=== PATIENT | female | born 1980 | race African-American/Black ===

== ENCOUNTER 2017-07-11 20:55 | Inpatient (IN) | payer SELFPAY ==
[~2017-07-11 20:55] MED LIST: NACL 0.9% IR ONE; WATER FOR IRRIG STERILE IR ONE
[2017-07-11] MEDS ORDERED: BICITRA PO ONE (22:18)
[2017-07-11] MEDS ORDERED: PEPCID IV ONE (22:18)
[2017-07-11] MEDS ORDERED: REGLAN IV ONE (22:18)
--- NOTE | 2017-07-11 22:23 | History and Physical Report ---
History of Present Illness Date of examination: 07/11/17 Date of admission: 07/11/17 20:55 Chief complaint: SROM clear fluid History of present illness: Pt is a 37yo HF EDC 07/19/17; EGA 39 0/7 weeks presents to [facility] L&D complaining of SROM clear fluid followed by RUC's q 3-4 mins. She received care at [facility] and scheduled for a Primary C Section with BTL on 07/14/17. course was unremarkable and records are available. Will proceed with her C Section with BTL since she is ruptured. Past History Past Medical History: no pertinent history Past Surgical History: no surgical history Family/Genetic History: none Social history: no significant social history, single - Obstetrical History Expected Date of Delivery: 07/19/17 Actual Gestation: 39 Week(s) 0 Day(s) : 9 Medications and Allergies Allergies Allergy/AdvReac Type Severity Reaction Status Date / Time No Known Allergies Allergy Unverified 07/11/17 21:30 Home Medications Medication Instructions Recorded Confirmed Last Taken Type Ferrous Sulfate [Feosol 325 MG tab] 325 mg PO BID #60 tablet 07/11/17 Unknown Rx HYDROcodone/APAP 5-325 [[place] 1 each PO Q6HR PRN #30 tablet 07/11/17 Unknown Rx 5/325] Ibuprofen [Motrin] 800 mg PO Q8HR PRN #30 tablet 07/11/17 Unknown Rx Vit Calc,Iron,Folic 1 each PO DAILY #30 tablet 07/11/17 Unknown Rx [ Vitamins] Review of Systems All systems: negative - Vital Signs Vital signs: Vital Signs Temp Pulse Resp 99 F 104 H 07/11/17 21:19 07/11/17 21:19 07/11/17 21:19 Temp Pulse Resp BP Pulse Ox 99 F 104 H 07/11/17 21:19 07/11/17 21:19 07/11/17 21:19 - Physical Exam Breasts: Positive: deferred Cardiovascular: Regular rate Lungs: Positive: Clear to auscultation Abdomen: Positive: normal appearance Genitourinary (Female): Positive: normal external genitalia Uterus: Positive: enlarged Extremities: Positive: normal - Obstetrical FHR: category 1 Uterine Contraction Monitor Mode: External Cervical Dilatation: 1 Cervical Effacement Percentage: 50 Results Result Diagrams: 07/11/17 23:14 All other labs normal. Ultrasound: report reviewed Assessment and Plan - Patient Problems (1) 39 weeks gestation of Onset Date: 07/12/17 Current Visit: Yes Status: Acute Plan to address problem: A: IUP @ 39 0/7 weeks in labor Desires elective C Section Desires permanent sterilization P: Admit to L&D for Primary C Section with BTL (2) PROM with onset of labor within 24 hours of rupture Onset Date: 07/12/17 Current Visit: Yes Status: Acute Qualifiers: PROM gestational age: full term Qualified Code(s): O42.02 - Full-term premature rupture of membranes, onset of labor within 24 hours of rupture (3) Encounter for sterilization Onset Date: 07/12/17 Current Visit: Yes Status: Acute
--- NOTE | 2017-07-11 22:25 | Ultrasound Report ---
FINAL REPORT EXAM: US OB LIMITED HISTORY: TABATHA TECHNIQUE: Ultrasound obstetrical transabdominal to evaluate for amniotic fluid PRIORS: None. FINDINGS: The amniotic fluid index is within normal limits 8.5 centimeters with deepest pocket of 3.41 centimeters Placenta is grade 1 anterior Position is cephalic cardiac activity present with heart rate of 135 beats per minute. IMPRESSION: Amniotic fluid index within normal limits 8.5 centimeters Single live intrauterine gestation in cephalic position.
[2017-07-11] MEDS ORDERED: LACTATED RINGERS 1,000 ML IV SCH (23:00)
[2017-07-11] MEDS ORDERED: ANCEF/STERILE WATER 2 GM/20 ML 2 GM/20 ML SYRINGE IV NR (23:00)
[2017-07-11] MEDS ORDERED: PITOCin/NS 20 UNIT/1000ML DRIP 20 UNITS/1,000 ML BAG IV SCH (23:00)
[2017-07-11 23:27] LABS: Basophils # (Auto) 0.1 K/mm3 (0.0-0.1); Basophils % (Auto) 0.5 % (0.0-1.8); Eosinophils # (Auto) 0.1 K/mm3 (0.0-0.4); Eosinophils % (Auto) 0.7 % (0.0-4.3); Hematocrit 32.4 % (30.3-42.9); Hemoglobin 10.4 gm/dl (10.1-14.3); Lymphocytes # (Auto) 2.1 K/mm3 (1.2-5.4); Lymphocytes % (Auto) 22.5 % (13.4-35.0); Mean Corpuscular HGB Conc 32 % (30-34); Monocytes # (Auto) 0.5 K/mm3 (0.0-0.8); Monocytes % (Auto) 5.7 % (0.0-7.3); Platelet Count 227 K/mm3 (140-440); Red Blood Count 4.73 M/mm3 (3.65-5.03); Red Cell Distribution Width 17.4 % (13.2-15.2)
[2017-07-11 23:36] LABS: Mean Corpuscular Hemoglobin 22 pg (28-32); Mean Corpuscular Volume 69 fl (79-97)
--- NOTE | 2017-07-12 00:15 | Anesthesia Consultation ---
Anesthesia Consult and Med Hx Date of service: 07/12/17 - Airway Anesthetic Teeth Evaluation: Good ROM Head & Neck: Adequate Mental/Hyoid Distance: Adequate Mallampati Class: Class II Intubation Access Assessment: Probably Good - Pulmonary Exam CTA: Yes - Cardiac Exam Cardiac Exam: RRR - Pre-Operative Health Status ASA Pre-Surgery Classification: ASA2 Proposed Anesthetic Plan: Epidural, Spinal - Pulmonary Hx Asthma: No - Cardiovascular System Hx Hypertension: No - Central Nervous System Hx Seizures: No Hx Psychiatric Problems: No - Endocrine Hx Renal Disease: No Hx Hypothyroidism: No Hx Hyperthyroidism: No - Hematic Hx Anemia: No Hx Sickle Cell Disease: No - Other Systems Hx Alcohol Use: No
--- NOTE | 2017-07-12 00:16 | Anesthesia Day of Surgery ---
Anesthesia Day of Surgery - Day of Surgery Patient Examined: Yes Patient H&P Reviewed: Yes Patient is NPO: Yes
[2017-07-12] MEDS ORDERED: MORPHINE ONE ×2 (00:42)
[2017-07-12] MEDS ORDERED: ASTRAMORPH PF 10MG/10ML ONE (00:45)
[2017-07-12] MEDS ORDERED: ZOFRAN ONE (01:16)
--- NOTE | 2017-07-12 01:42 | Operative Report ---
Operative Report Operative Report: Date of procedure: 07/12/2017 Pre-operative diagnosis: 1. Intrauterine at 39-0/7 weeks in labor 2. Spontaneous ruptured membranes 3. Desires elective section 4. Desires permanent sterilization Post-operative diagnosis: Same Procedure name(s): 1. Primary low transverse section 2. Bilateral tubal ligation Surgeon: Jonathan Asher MD Donor Center Technician: None Anesthesia: Spinal anesthesia by Dr. Lopez EBL: 600 mL Findings: A 3093 g male infant Apgars 8 at 1 minute 9 at 5 minutes. Clear amniotic fluid. Normal uterus. Normal tubes and ovaries bilaterally. Procedure: After the patient was prepped and draped in usual sterile fashion, and after satisfactory level of epidural anesthesia was obtained, the skin knife was used to make a transverse skin incision. The incision was excised down to layer of the fascia, which was nicked in the midline and extended laterally using the Bovie cautery. The rectus muscles were dissected off the rectus fascia both superiorly and inferiorly. The rectus bellies in the midline, and the peritoneum was entered under direct visualization. The peritoneal incision was extended superiorly and inferiorly. A bladder flap was created and the bladder blade was then placed. The uterus was scored in a curvilinear linear fashion, entered in the midline revealing clear amniotic fluid. The 's head was delivered onto the surgical field, and the oropharynx and nasopharynx were bulb suctioned. The rest of the infant's body was delivered, cord was doubly clamped and cut and the infant was handed to the waiting respiratory team. Cord blood was then obtained. The placenta was manually removed from the uterus, and the uterus removed from its normal anatomical position. After gentle uterine lavage, the incision was inspected and found to be without extensions. It was then closed in 2 layers using 0 Vicryl suture in a running interlocking fashion, the second layer imbricating the first. Attention was then turned to the tubal ligation. First the right fallopian tube was grasped using Carter, and a Filshie clip was applied to the proximal portion of the tube. Same procedure performed on the left fallopian tube. First the the left fallopian tube was grasped using Vincent, and a Filshie clip was applied to the proximal portion of tube. After good hemostasis was achieved, copious amounts or irrigation was performed, and the gutters were suctioned free of blood and blood clots. Tisseel sealant was sprayed across the uterine incision. The uterus was then returned to its normal anatomical position, and after excellent hemostasis assured, the peritoneum was re- approximated using 3-0 Vicryl suture in a running interlocking fashion, and then the rectus muscles were re-approximated using 3-0 Vicryl suture in a figure -of-eight configuration. The fascia was then re-approximated using 0 Vicryl suture in running interlocking fashion. The subcutaneous layer was made hemostatic using Bovie cautery, the Tisseel sealant was sprayed across the fascial incision and the skin edges re-approximated using 4-0 Vicryl suture in a sub-cuticular fashion. Patient tolerated the procedure well was transported to recovery in stable condition.
[2017-07-12] MEDS ORDERED: SENOKOT PO PRN (01:43)
[2017-07-12] MEDS ORDERED: MYLICON PO PRN (01:43)
[2017-07-12] MEDS ORDERED: TYLENOL PO PRN (01:43)
[2017-07-12] MEDS ORDERED: NORCO 5/325 PO PRN (01:43)
[2017-07-12] MEDS ORDERED: NARCAN 0.4 MG/1 ML IV PRN ×2 (01:43→01:46)
[2017-07-12] MEDS ORDERED: TORADOL IV PRN ×2 (01:43)
[2017-07-12] MEDS ORDERED: LANSINOH TP PRN (01:43)
[2017-07-12] MEDS ORDERED: PHENERGAN PR PRN (01:43)
[2017-07-12] MEDS ORDERED: ZOFRAN IV PRN ×2 (01:43→01:46)
[2017-07-12] MEDS ORDERED: MILK OF MAGNESIA PO PRN (01:43)
[2017-07-12] MEDS ORDERED: TUCKS PAD TP PRN (01:43)
[2017-07-12] MEDS ORDERED: PHENERGAN PO PRN (01:46)
--- NOTE | 2017-07-12 01:46 | Post Anesthesia Evaluation ---
- Post Anesthesia Evaluation Patient Participated: Yes Airway Patent: Yes Stable Respiratory Function: Yes Nausea/Vomiting: No Temp > 96.8F: Yes Pain Manageable: Yes Adequeate Hydration: Yes Anesthesia Complications: No Block Receding Appropriately: Yes Patient on Ventilator: No
[2017-07-12] MEDS ORDERED: D5LR 1,000 ML IV SCH (02:00)
[2017-07-12] MEDS ORDERED: ANCEF/NS 1 GM/50 ML 1 GM/50 ML BAG IV SCH (02:00)
[2017-07-12] MEDS ORDERED: SODIUM CHLORIDE FLUSH SYRINGE 10 ML IV NR ×2 (02:00)
[2017-07-12] MEDS ORDERED: PITOCin/NS 20 UNIT/1000ML DRIP 20 UNITS/1,000 ML BAG IV SCH (02:00)
[2017-07-12] MEDS: ceFAZolin 1 GM in NACL 0.9% 20 ML IV SCH ×2 (07:59→16:55)
[2017-07-12 16:30] LABS: Hemoglobin 8.8 gm/dl (10.1-14.3)
[2017-07-12] MEDS: MOTRIN PO PRN (18:57)
[2017-07-13] MEDS ORDERED: M-M-R II VACCINE SUB-Q ONE (06:00)
[2017-07-13] MEDS ORDERED: BOOSTRIX IM ONE (06:00)
[2017-07-13] MEDS: PERCOCET 5/325 PO PRN ×3 (07:48→21:58)
--- NOTE | 2017-07-13 10:06 | Progress Note ---
Assessment and Plan - Patient Problems (1) S/P primary low transverse Current Visit: Yes Status: Acute Plan to address problem: POD 2 - stable Continue routine postop orders Anticipate discharge 07/14/17 (2) Status post tubal ligation at time of delivery, current hospitalization Current Visit: Yes Status: Acute (3) Abdominal distension (gaseous) Current Visit: Yes Status: Acute Plan to address problem: Encouraged increased ambulation Start Colace 100mg PO BID Re-evaluate in AM (4) Anemia in puerperium, baby delivered during current episode of care Current Visit: Yes Status: Acute Plan to address problem: Asymptomatic Continue iron therapy Subjective - Subjective Date of service: 07/13/17 Principal diagnosis: s/p primary LTCS wt BTL Patient reports: appetite normal, voiding normally, pain well controlled, flatus , ambulating normally, no dizzy ambulation, no bowel movement [place]: doing well, nursing well Objective - Vital Signs Latest vital signs: Vital Signs Temp Pulse Resp BP BP Pulse Ox 07/13/17 07:48 20 07/13/17 01:00 97.6 F 72 18 107/58 99 07/12/17 15:40 98.7 F 75 20 113/73 07/12/17 12:50 98.2 F 80 20 113/62 Intake and Output 07/12/17 07/13/17 07/13/17 23:59 07:59 15:59 Intake Total 360 240 Output Total 1510 Balance -1150 240 Intake: Oral 360 Intake, Free Water 240 Output: Urine 1510 Void 1510 Other: Total, Intake Amount 360 Total, Output Amount 900 # Voids Void 1 2 - Exam Cardiovascular: Present: Regular rate, Normal S1, Normal S2, No murmurs Lungs: Present: Clear to auscultation, Normal air movement Abdomen: Present: soft, distention Vulva: both: normal Uterus: Present: normal, firm, fundal height at umbilicus Extremities: Present: normal Incision: Present: normal, dry, intact - Labs Labs: Abnormal lab results 07/12/17 Range/Units 16:06 Hgb 8.8 L (10.1-14.3) gm/dl Hct 28.0 L (30.3-42.9) %
[2017-07-13] MEDS: FEOSOL PO SCH (12:38)
[2017-07-13] MEDS: COLACE PO SCH ×2 (13:51→21:51)
[2017-07-13] MEDS: MOTRIN PO PRN (19:07)
[2017-07-14] MEDS: MOTRIN PO PRN (05:34)
--- NOTE | 2017-07-14 10:02 | Progress Note ---
Assessment and Plan A: POD#2 s/p Repeat c/s with BTL Stable P: Routine PP/PO care Plan discharge home today pending peds Subjective - Subjective Date of service: 07/14/17 Principal diagnosis: s/p primary LTCS wth BTL Interval history: See H&P and Operative note Patient reports: appetite normal, voiding normally, pain well controlled, flatus , ambulating normally, no bowel movement [place]: doing well, other (Breast and Bottle) Objective - Vital Signs Latest vital signs: Vital Signs Temp Pulse Resp BP Pulse Ox 07/14/17 07:32 98.4 F 64 16 109/66 98 07/14/17 01:29 97.3 F L 75 18 107/53 98 07/13/17 16:35 97.7 F 70 18 126/74 99 07/13/17 13:50 20 07/13/17 12:15 98.3 F 76 18 137/74 100 - Exam Breasts: Present: normal, Cardiovascular: Present: Regular rate, Normal S1, Normal S2 Lungs: Present: Clear to auscultation, Normal air movement Abdomen: Present: normal appearance, soft, tenderness (as expected post-op), normal bowel sounds. Absent: distention Vulva: both: normal Uterus: Present: firm, fundal height below umbilicus (-1) Extremities: Present: normal Deep Tendon Reflex Grade: Normal +2 Incision: Present: normal (LTI closed with SQ sutures and steri stips, CDI, no drainage), dry, intact
--- NOTE | 2017-07-14 10:13 | Discharge Summary ---
Providers - Providers Date of Admission: 07/11/17 20:55 Date of discharge: 07/14/17 Attending physician: SHEBA SKAGGS MD Primary care physician: SHEBA SKAGGS MD Hospitalization Reason for admission: active labor, rupture of membranes Delivery: Procedure: bilateral tubal ligation, repeat low transverse Procedure details: See operative note Incision: normal (LTI, closed with SQ sutures and steri strips, CDI, no drainage ), dry, intact Disposition: DC-30 STILL A PATIENT Plan - Discharge Medications Prescriptions: Ferrous Sulfate [Feosol 325 MG tab] 325 mg PO BID #60 tablet HYDROcodone/APAP 5-325 [[place] 5/325] 1 each PO Q6HR PRN #30 tablet PRN Reason: Pain Ibuprofen [Motrin] 800 mg PO Q8HR PRN #30 tablet PRN Reason: Moder Pain Unrelieved By [place] Vit Calc,Iron,Folic [ Vitamins] 1 each PO DAILY #30 tablet - Provider Discharge Summary Activity: routine, no sex for 6 weeks, no heavy lifting 4 weeks, no strenuous exercise Diet: routine Instructions: routine Additional instructions: [] Smoking cessation referral if applicable(refer to patient education folder for contact #) [] Refer to [facility]'s [facility] Booklet Call your doctor immediately for: * Fever > 100.5 * Heavy vaginal bleeding ( >1 pad per hour) * Severe persistent headache * Shortness of breath * Reddened, hot, painful area to leg or breast * Drainage or odor from incision. * Keep incision clean and dry at all times and follow doctor's instructions regarding bathing/showering - Follow up plan Follow up: SHEBA SKAGGS MD [Primary Care Provider] - 7 Days
[2017-07-14] MEDS: PRENATAL VITAMIN PO SCH ×2 (10:45→10:48)
[2017-07-14] MEDS: FEOSOL PO SCH (10:48)
[2017-07-14] MEDS: COLACE PO SCH (10:48)
[2017-07-14 16:50] VITALS: BP 136/63
== END 2017-07-14 16:00 | disposition home or self-care (01) | DRG 765 ==
LOC: APU 20:55 → OB 07-12 02:50
PROVIDERS: ADMIT Obstetrics & Gynecology; ATTEND Obstetrics & Gynecology
PROC: 10D00Z1 Extraction of Products of Conception, Low, Open Approach (ICD-10-PCS; principal; 2017-07-12)
PROC: 0UL70ZZ Occlusion of Bilateral Fallopian Tubes, Open Approach (ICD-10-PCS; 2017-07-12)
PROC: 3E0234Z Introduction of Serum, Toxoid and Vaccine into Muscle, Percutaneous Approach (ICD-10-PCS; 2017-07-13)
DX: O42.02 Full-term premature rupture of membranes, onset of labor within 24 hours of rupture (principal); D62 Acute posthemorrhagic anemia; O99.02 Anemia complicating childbirth; Z3A.39 39 weeks gestation of pregnancy; Z37.0 Single live birth; Z23 Encounter for immunization; Z30.2 Encounter for sterilization
CPT/HCPCS: 36415; 76815; 85014; 85018; 85025; 86850; 86900; 86901; 99211; C9250; G0463; J0690; J2270; J2274; J2405; J2590; J2765; J7120; J7121